=== PATIENT | male | born 1980 | race African-American/Black ===

== ENCOUNTER 2018-01-22 11:59 | Emergency (ER) | payer BC, SELFPAY ==
[2018-01-22] MEDS ORDERED: Adacel (T-DAP) 0.5 ML VIAL ONE (12:17)
== END 2018-01-22 12:50 | disposition home or self-care (01) ==
LOC: BURERS 11:59
DX: S61.216A Laceration without foreign body of right little finger without damage to nail, initial encounter (principal); I10 Essential (primary) hypertension; F17.210 Nicotine dependence, cigarettes, uncomplicated; W26.8XXA Contact with other sharp object(s), not elsewhere classified, initial encounter
CPT/HCPCS: 12001; 90471; 90715